=== PATIENT | male | born 1950 | race Caucasian/White ===

== ENCOUNTER 2022-01-12 21:18 | Inpatient (IN) ==
[~2022-01-12 21:18] MED LIST: Amiodarone 360 MG IVPREMIX 360 MG/200 ML BAG IV SCH
[2022-01-12] MEDS: Heparin DRIP 25,000 UNITS BAG 25,000 UNITS/500 ML BAG IV SCH (22:07)
[2022-01-12] MEDS: nitroGLYCERIN DRIP 25,000 MCG/250 ML BTL IV SCH (22:12)
[2022-01-12] MEDS ORDERED: Dextrose 50% Syringe 50 ml 25 GM/50 ML SYRINGE IV PUSH PRN (22:16)
[2022-01-12 23:01] LABS: ABS Basophils 0.1 10^3/ul (0-0.2); ABS Lymphocytes 0.7 10^3/ul (1.0-4.8); ABS Monocytes 0.8 10^3/ul (0-0.8); ABS Neutrophils 12.4 10^3/ul (1.5-7.7); Eosinophil % 0.1 %; Hematocrit 34 % (42-52); Lymphocyte % 5.3 %; Mean Corpuscular HGB Conc 32 g/dL (31-36); Mean Corpuscular Hemoglobin 29 pg (27-31); Mean Corpuscular Volume 91 fL (80-94); Mean Platelet Volume 8.6 fL (7.4-10.4); Platelet Count 162 10^3/uL (150-450); Red Blood Count 3.77 10^6 /uL (4.18-5.48); Red Cell Distribution Width 15 % (10-15)
[2022-01-12 23:10] LABS: Activated Partial Thrombo Time 54.8 seconds (26.0-38.0); INR 1.22 (0.89-1.11)
[2022-01-12 23:25] LABS: Albumin 3.5 g/dL (3.2-5.2); Albumin/Globulin Ratio 1.1 (1-3); Calcium 8.2 mg/dL (8.6-10.3); Globulin 3.3 g/dL (2-4); Magnesium 2.1 mg/dL (1.9-2.7); Potassium 3.2 mmol/L (3.5-5.0); Total Protein 6.8 g/dL (6.4-8.9); eGFR CKD-EPI 22.2 (>60)
[2022-01-12 23:41] LABS: TSH Ultra Thyroid Stim Horm 1.72 mcIU/mL (0.34-5.60)
[2022-01-12 23:42] LABS: Free T3 2.5 pg/mL (2.5-3.9)
[2022-01-12 23:43] LABS: Free T4 1.09 ng/dL (0.61-1.12)
[2022-01-13] MEDS ORDERED: Potassium Chlor 20 meq TAB.ER PO ONE ×3 (00:05→14:35)
[2022-01-13] MEDS: Amiodarone 360 MG IVPREMIX 360 MG/200 ML BAG IV SCH ×2 (00:11→07:30)
[2022-01-13 00:46] LABS: High Sensitivity Troponin 1 Hr 4462 pg/mL (<20)
[2022-01-13] MEDS ORDERED: hydrALAZINE 20 mg/ml 1 ML Vial IV IV SLOW PU ONE (04:24)
[2022-01-13 04:58] LABS: Anion Gap 12 mmol/L (2-11); Blood Urea Nitrogen 31 mg/dL (6-24); CO2 Carbon Dioxide 26 mmol/L (22-32); Calcium 8.2 mg/dL (8.6-10.3); Chloride 104 mmol/L (101-111); Cholesterol 128 mg/dL; Glucose 121 mg/dL (70-100); HDL Cholesterol 49.7 mg/dL; LDL Cholesterol 62 mg/dL; Potassium 3.3 mmol/L (3.5-5.0); Sodium 142 mmol/L (135-145); Triglycerides 83 mg/dL; eGFR CKD-EPI 21.4 (>60)
[2022-01-13] MEDS: Heparin 5000 UNITS/ML 1 mL VIAL IV SCH ×2 (04:58→12:12)
[2022-01-13] MEDS: nitroGLYCERIN DRIP 25,000 MCG/250 ML BTL IV SCH ×2 (06:30→09:39)
[2022-01-13] MEDS ORDERED: Bumetanide IV 0.25 MG/ML 4 ml VIAL (1 mg) SLOW PUSH SCH (09:00)
[2022-01-13 09:23] LABS: ABS Basophils 0.1 10^3/ul (0-0.2); ABS Neutrophils 13.6 10^3/ul (1.5-7.7); Eosinophil % 0.2 %; Hematocrit 33 % (42-52); Hemoglobin 10.4 g/dL (14.0-18.0); Lymphocyte % 6.2 %; Mean Corpuscular HGB Conc 32 g/dL (31-36); Mean Corpuscular Hemoglobin 29 pg (27-31); Mean Corpuscular Volume 91 fL (80-94); Mean Platelet Volume 9.3 fL (7.4-10.4); Platelet Count 180 10^3/uL (150-450); Red Blood Count 3.59 10^6 /uL (4.18-5.48); Red Cell Distribution Width 15 % (10-15); White Blood Count 15.6 10^3/uL (3.5-10.8)
[2022-01-13 09:31] LABS: Urine Appearance Clear; Urine Bilirubin Negative (Negative); Urine Blood 2+ (Negative); Urine Color Straw; Urine Glucose Negative (Negative); Urine Ketones Negative (Negative); Urine Nitrite Negative (Negative); Urine Protein 2+(100 mg/dL) (Negative); Urine Specific Gravity 1.008 (1.002-1.030); Urine Urobilinogen Negative (Negative)
[2022-01-13 09:34] LABS: Total Iron Binding Capacity 251 mcg/dL (250-450); Transferrin 179 mg/dL (203-362)
[2022-01-13 09:35] LABS: Urine Bacteria Absent (Absent); Urine Red Blood Cell 3+(>10/hpf) (Absent); Urine White Blood Cell Trace(0-5/hpf) (Absent)
[2022-01-13 09:46] LABS: % Iron Saturation 8 % (15-55); Iron < 20 ug/dL (50-212); Unsaturated Iron Binding 231 ug/dL
[2022-01-13] MEDS ORDERED: Magnesium Sulfate IV 3 GM in NS 0.9% 100 ml BAG 100 ML IVPB ONE (09:48)
[2022-01-13 09:54] LABS: Ferritin 143.6 ng/mL (24-336)
[2022-01-13] MEDS ORDERED: Sulfur Hexaflouride MICROSPHR 25 MG VIAL ONE (09:56)
[2022-01-13] MEDS ORDERED: Bumetanide IV 10 MG in Premix IV 0 ML IV SCH (11:47)
[2022-01-13] MEDS: Aspirin EC 81 mg TAB.EC (enteric coated) PO SCH (12:19)
[2022-01-13] MEDS: Amiodarone 400 mg TAB PO SCH ×2 (12:19→21:03)
[2022-01-13 14:26] LABS: Calcium 8.6 mg/dL (8.6-10.3); Potassium 3.1 mmol/L (3.5-5.0)
[2022-01-13 14:31] LABS: eGFR CKD-EPI 22.2 (>60)
[2022-01-13] MEDS: KCL 20 MEQ/100 ML IVPREMIX 20 MEQ/100 ML BAG IV SCH ×2 (14:55→16:58)
[2022-01-13 15:05] LABS: Magnesium 2.7 mg/dL (1.9-2.7)
[2022-01-13] MEDS ORDERED: Adenosine 3 MG/ML 2 ml VIAL (6 mg) ONE (16:07)
[2022-01-13] MEDS ORDERED: Adenosine 3 MG/ML 2 ml VIAL (6 mg) IV PUSH ONE ×2 (16:07→16:36)
[2022-01-13] MEDS: Heparin DRIP 25,000 UNITS BAG 25,000 UNITS/500 ML BAG IV SCH (16:59)
[2022-01-13] MEDS: Bumetanide IV 10 MG in Premix IV 0 ML IV SCH ×2 (18:26→20:04)
[2022-01-13 19:35] LABS: Calcium 7.9 mg/dL (8.6-10.3); Magnesium 2.2 mg/dL (1.9-2.7); Potassium 3.9 mmol/L (3.5-5.0); eGFR CKD-EPI 21.3 (>60)
[2022-01-14 03:28] LABS: Calcium 8.5 mg/dL (8.6-10.3); Magnesium 2.4 mg/dL (1.9-2.7); eGFR CKD-EPI 19.6 (>60)
[2022-01-14 05:23] LABS: ABS Basophils 0.1 10^3/ul (0-0.2); ABS Eosinophils 0.1 10^3/ul (0-0.6); ABS Lymphocytes 1.6 10^3/ul (1.0-4.8); ABS Monocytes 0.7 10^3/ul (0-0.8); ABS Neutrophils 8.3 10^3/ul (1.5-7.7); Hematocrit 30 % (42-52); Lymphocyte % 15.1 %; Mean Corpuscular HGB Conc 33 g/dL (31-36); Mean Corpuscular Hemoglobin 30 pg (27-31); Mean Corpuscular Volume 90 fL (80-94); Mean Platelet Volume 8.8 fL (7.4-10.4); Platelet Count 164 10^3/uL (150-450); Red Blood Count 3.37 10^6 /uL (4.18-5.48); Red Cell Distribution Width 16 % (10-15); White Blood Count 10.8 10^3/uL (3.5-10.8)
[2022-01-14 05:57] LABS: Calcium 8.2 mg/dL (8.6-10.3); Magnesium 2.2 mg/dL (1.9-2.7); Potassium 3.4 mmol/L (3.5-5.0); eGFR CKD-EPI 19.9 (>60)
[2022-01-14] MEDS ORDERED: Potassium Chlor 20 meq TAB.ER PO ONE (06:14)
[2022-01-14] MEDS ORDERED: KCL 10 MEQ/50 ML IVPREMIX 10 MEQ/50 ML BAG IV SCH (08:00)
[2022-01-14] MEDS: Aspirin EC 81 mg TAB.EC (enteric coated) PO SCH (08:34)
[2022-01-14] MEDS: Amiodarone 400 mg TAB PO SCH ×2 (08:34→21:06)
[2022-01-14] MEDS: KCL 20 MEQ/100 ML IVPREMIX 20 MEQ/100 ML BAG IV SCH ×3 (08:38→14:06)
[2022-01-14] MEDS ORDERED: Bumetanide IV 10 MG in Premix IV 0 ML IV SCH (09:08)
[2022-01-14] MEDS: Heparin DRIP 25,000 UNITS BAG 25,000 UNITS/500 ML BAG IV SCH (09:40)
[2022-01-14] MEDS ORDERED: Acetylcysteine INH SOL (RT) 200 MG/ML 4 ML VIAL INH ONE (10:25)
[2022-01-14 15:18] LABS: Blood Urea Nitrogen 39 mg/dL (6-24); CO2 Carbon Dioxide 25 mmol/L (22-32); Calcium 8.4 mg/dL (8.6-10.3); Chloride 103 mmol/L (101-111); Glucose 221 mg/dL (70-100); Magnesium 2.1 mg/dL (1.9-2.7); Sodium 138 mmol/L (135-145); eGFR CKD-EPI 17.9 (>60)
[2022-01-14 15:22] LABS: Anion Gap 10 mmol/L (2-11)
[2022-01-14] MEDS ORDERED: Iron Sucrose 200 MG in NS 0.9% 100 ml BAG 100 ML IVPB ONE (16:49)
[2022-01-14] MEDS: Nitro 2% OINT (Nitroglycerin) 1 INCH/PAK TOPICAL SCH (17:20)
[2022-01-14 19:33] LABS: Anion Gap 10 mmol/L (2-11); Blood Urea Nitrogen 41 mg/dL (6-24); CO2 Carbon Dioxide 24 mmol/L (22-32); Calcium 8.5 mg/dL (8.6-10.3); Chloride 103 mmol/L (101-111); Glucose 168 mg/dL (70-100); Sodium 137 mmol/L (135-145); eGFR CKD-EPI 18.3 (>60)
[2022-01-14 22:20] LABS: Magnesium 2.1 mg/dL (1.9-2.7); Potassium Redraw 3.8 mmol/L (3.5-5.0)
[2022-01-15 01:09] LABS: Calcium 8.4 mg/dL (8.6-10.3); Potassium 3.5 mmol/L (3.5-5.0)
[2022-01-15 01:10] LABS: eGFR CKD-EPI 17.4 (>60)
[2022-01-15] MEDS: Heparin DRIP 25,000 UNITS BAG 25,000 UNITS/500 ML BAG IV SCH ×2 (04:22→20:55)
[2022-01-15 04:43] LABS: ABS Basophils 0.1 10^3/ul (0-0.2); ABS Eosinophils 0.4 10^3/ul (0-0.6); ABS Monocytes 0.6 10^3/ul (0-0.8); ABS Neutrophils 6.5 10^3/ul (1.5-7.7); Eosinophil % 4.5 %; Hematocrit 32 % (42-52); Hemoglobin 10.2 g/dL (14.0-18.0); Mean Corpuscular HGB Conc 32 g/dL (31-36); Mean Corpuscular Hemoglobin 29 pg (27-31); Mean Corpuscular Volume 90 fL (80-94); Mean Platelet Volume 9.1 fL (7.4-10.4); Platelet Count 191 10^3/uL (150-450); Red Cell Distribution Width 16 % (10-15); White Blood Count 9.6 10^3/uL (3.5-10.8)
[2022-01-15 06:12] LABS: Calcium 8.2 mg/dL (8.6-10.3); Magnesium 1.9 mg/dL (1.9-2.7); Potassium 3.2 mmol/L (3.5-5.0)
[2022-01-15] MEDS ORDERED: Magnesium Sulfate IV 1GM/100ML 1 GM/100 ML BAG IV ONE (06:13)
[2022-01-15] MEDS ORDERED: Potassium Chlor 20 meq TAB.ER PO ONE (06:13)
[2022-01-15 06:17] LABS: eGFR CKD-EPI 18.1 (>60)
[2022-01-15] MEDS: KCL 20 MEQ/100 ML IVPREMIX 20 MEQ/100 ML BAG IV SCH ×3 (08:04→10:15)
[2022-01-15] MEDS: Nitro 2% OINT (Nitroglycerin) 1 INCH/PAK TOPICAL SCH (08:06)
[2022-01-15] MEDS: Amiodarone 400 mg TAB PO SCH (08:48)
[2022-01-15] MEDS: Aspirin EC 81 mg TAB.EC (enteric coated) PO SCH (08:49)
[2022-01-15] MEDS: Isosorbide Mononit ER 30mg TAB PO SCH (10:06)
[2022-01-15] MEDS ORDERED: COVID VACC, BIVAL PFIZER-TRIS 30 MCG/0.3 ML SYR IM ONE (14:00)
[2022-01-15] MEDS ORDERED: Influenza vaccine *QUAD* *2022-23* 0.5 ML SYRINGE IM ONE (14:00)
[2022-01-15 16:51] LABS: Calcium 8.5 mg/dL (8.6-10.3); Potassium 4.2 mmol/L (3.5-5.0); eGFR CKD-EPI 16.2 (>60)
[2022-01-15] MEDS: Senna TAB 8.6 mg TAB PO SCH (20:50)
[2022-01-16 06:25] LABS: ABS Basophils 0.1 10^3/ul (0-0.2); ABS Eosinophils 0.5 10^3/ul (0-0.6); ABS Lymphocytes 2.2 10^3/ul (1.0-4.8); ABS Monocytes 0.6 10^3/ul (0-0.8); ABS Neutrophils 9.2 10^3/ul (1.5-7.7); Eosinophil % 4.1 %; Hematocrit 31 % (42-52); Hemoglobin 10.2 g/dL (14.0-18.0); Lymphocyte % 17.6 %; Mean Corpuscular HGB Conc 33 g/dL (31-36); Mean Corpuscular Hemoglobin 30 pg (27-31); Mean Corpuscular Volume 90 fL (80-94); Mean Platelet Volume 9.3 fL (7.4-10.4); Platelet Count 226 10^3/uL (150-450); Red Blood Count 3.42 10^6 /uL (4.18-5.48); Red Cell Distribution Width 16 % (10-15); White Blood Count 12.6 10^3/uL (3.5-10.8)
[2022-01-16 07:16] LABS: Calcium 8.5 mg/dL (8.6-10.3); Magnesium 1.9 mg/dL (1.9-2.7); Potassium 3.5 mmol/L (3.5-5.0); eGFR CKD-EPI 16.8 (>60)
[2022-01-16] MEDS: Aspirin EC 81 mg TAB.EC (enteric coated) PO SCH (09:04)
[2022-01-16] MEDS: Isosorbide Mononit ER 30mg TAB PO SCH (09:04)
[2022-01-16] MEDS: Enoxaparin 100 MG/ML SYR SUBCUT SCH (11:13)
[2022-01-16] MEDS: Senna TAB 8.6 mg TAB PO SCH (20:25)
[2022-01-17 06:03] LABS: ABS Basophils 0.1 10^3/ul (0-0.2); ABS Eosinophils 0.5 10^3/ul (0-0.6); ABS Lymphocytes 2.1 10^3/ul (1.0-4.8); ABS Monocytes 0.8 10^3/ul (0-0.8); ABS Neutrophils 6.2 10^3/ul (1.5-7.7); Eosinophil % 5.2 %; Hematocrit 31 % (42-52); Hemoglobin 10.1 g/dL (14.0-18.0); Lymphocyte % 21.5 %; Mean Corpuscular HGB Conc 33 g/dL (31-36); Mean Corpuscular Hemoglobin 30 pg (27-31); Mean Corpuscular Volume 91 fL (80-94); Mean Platelet Volume 8.9 fL (7.4-10.4); Platelet Count 208 10^3/uL (150-450); Red Blood Count 3.41 10^6 /uL (4.18-5.48); Red Cell Distribution Width 16 % (10-15); White Blood Count 9.6 10^3/uL (3.5-10.8)
[2022-01-17 06:18] LABS: Calcium 8.3 mg/dL (8.6-10.3); Magnesium 1.8 mg/dL (1.9-2.7); Phosphorus 4.3 mg/dL (2.5-5.0); Potassium 3.7 mmol/L (3.5-5.0); eGFR CKD-EPI 15.7 (>60)
[2022-01-17] MEDS ORDERED: Magnesium Sulfate 2 gm BAG 2 GM/50 ML BAG IVPB ONE (08:03)
[2022-01-17] MEDS: Aspirin EC 81 mg TAB.EC (enteric coated) PO SCH (08:45)
[2022-01-17] MEDS: Isosorbide Mononit ER 30mg TAB PO SCH (08:45)
[2022-01-17] MEDS: Enoxaparin 100 MG/ML SYR SUBCUT SCH (11:27)
[2022-01-17 11:55] LABS: Rapid COVID-19 Molecular Undetected (Undetected)
[2022-01-17] MEDS: Senna TAB 8.6 mg TAB PO SCH (21:00)
[2022-01-18 06:15] LABS: ABS Basophils 0.1 10^3/ul (0-0.2); ABS Eosinophils 0.5 10^3/ul (0-0.6); ABS Lymphocytes 1.8 10^3/ul (1.0-4.8); ABS Monocytes 0.7 10^3/ul (0-0.8); ABS Neutrophils 6.1 10^3/ul (1.5-7.7); Eosinophil % 5.3 %; Hematocrit 30 % (42-52); Hemoglobin 9.7 g/dL (14.0-18.0); Lymphocyte % 19.8 %; Mean Corpuscular HGB Conc 32 g/dL (31-36); Mean Corpuscular Hemoglobin 29 pg (27-31); Mean Corpuscular Volume 90 fL (80-94); Mean Platelet Volume 8.6 fL (7.4-10.4); Platelet Count 215 10^3/uL (150-450); Red Blood Count 3.33 10^6 /uL (4.18-5.48); Red Cell Distribution Width 16 % (10-15); White Blood Count 9.2 10^3/uL (3.5-10.8)
[2022-01-18 08:03] LABS: Calcium 8.2 mg/dL (8.6-10.3); Magnesium 2.2 mg/dL (1.9-2.7); Phosphorus 3.8 mg/dL (2.5-5.0); Potassium 3.8 mmol/L (3.5-5.0); eGFR CKD-EPI 16.6 (>60)
[2022-01-18] MEDS: Aspirin EC 81 mg TAB.EC (enteric coated) PO SCH (08:08)
[2022-01-18] MEDS: Isosorbide Mononit ER 30mg TAB PO SCH (08:09)
[2022-01-18] MEDS ORDERED: Sulfur Hexaflouride MICROSPHR 25 MG VIAL ONE (08:43)
[2022-01-18] MEDS ORDERED: Isosorbide Mononit ER 60mg TAB PO SCH (09:00)
[2022-01-18] MEDS: Enoxaparin 100 MG/ML SYR SUBCUT SCH (12:25)
[2022-01-18] MEDS: Senna TAB 8.6 mg TAB PO SCH (22:50)
[2022-01-19 05:21] LABS: Calcium 8.1 mg/dL (8.6-10.3); Potassium 3.7 mmol/L (3.5-5.0)
[2022-01-19 05:27] LABS: eGFR CKD-EPI 18.5 (>60)
[2022-01-19] MEDS: Aspirin EC 81 mg TAB.EC (enteric coated) PO SCH (08:53)
[2022-01-19] MEDS: Isosorbide Mononit ER 30mg TAB PO SCH (08:53)
[2022-01-19] MEDS: Enoxaparin 100 MG/ML SYR SUBCUT SCH (11:27)
[2022-01-19] MEDS: Senna TAB 8.6 mg TAB PO SCH (22:39)
[2022-01-20 08:32] LABS: ABS Basophils 0.1 10^3/ul (0-0.2); ABS Eosinophils 0.3 10^3/ul (0-0.6); ABS Monocytes 0.9 10^3/ul (0-0.8); ABS Neutrophils 7.9 10^3/ul (1.5-7.7); Eosinophil % 2.8 %; Hematocrit 31 % (42-52); Hemoglobin 9.8 g/dL (14.0-18.0); Lymphocyte % 17.7 %; Mean Corpuscular HGB Conc 32 g/dL (31-36); Mean Corpuscular Hemoglobin 29 pg (27-31); Mean Corpuscular Volume 91 fL (80-94); Mean Platelet Volume 8.6 fL (7.4-10.4); Platelet Count 235 10^3/uL (150-450); Red Cell Distribution Width 16 % (10-15); White Blood Count 11.2 10^3/uL (3.5-10.8)
[2022-01-20 09:02] LABS: Calcium 8.2 mg/dL (8.6-10.3); Magnesium 2.2 mg/dL (1.9-2.7); Potassium 3.7 mmol/L (3.5-5.0)
[2022-01-20 09:08] LABS: eGFR CKD-EPI 17.7 (>60)
[2022-01-20] MEDS: Aspirin EC 81 mg TAB.EC (enteric coated) PO SCH (09:12)
[2022-01-20] MEDS: Isosorbide Mononit ER 30mg TAB PO SCH (09:14)
[2022-01-20 09:16] VITALS: BP 186/102
== END 2022-01-20 09:40 | disposition short-term general hospital (02) | DRG 280 ==
LOC: ICU 21:23 → SUATTDRO 21:27 → MEDTELE 01-16 18:31
PROVIDERS: ADMIT Internal Medicine; ATTEND Hospitalist